=== PATIENT | male | born 1970 | race Two or more races ===

== ENCOUNTER 2021-01-19 21:49 | Emergency (ER) | payer MEDICAID, OTHER ==
[~2021-01-19] VITALS: Ht 177.8 cm; Wt 97.5 kg
[2021-01-19 21:57] VITALS: BP 144/86
== END 2021-01-19 22:53 | disposition left against medical advice (07) ==
LOC: ER 21:51
DX: F41.9 Anxiety disorder, unspecified (principal); Z53.21 Procedure and treatment not carried out due to patient leaving prior to being seen by health care provider
CPT/HCPCS: 93005